=== PATIENT | male | born 1980 | race Caucasian/White ===

== ENCOUNTER 2017-01-28 15:48 | Emergency (ER) | payer BC ==
[~2017-01-28] VITALS: Ht 190.5 cm; Wt 83.9 kg
[2017-01-28 16:03] VITALS: BP 148/89
--- NOTE | 2017-01-28 16:13 | PHYS DOC ---
Past Medical History Past Medical History: No Pertinent History Past Surgical History: Appendectomy, Other Additional Past Surgical Histo: LEFT FEMUR Alcohol Use: Occasionally Drug Use: None Adult General Chief Complaint Chief Complaint: DENTAL PROBLEM HPI HPI Patient is a 36 year old female presents to the emergency department stating that he has having left upper dental pain and discomfort in which she's been having for the last 3 weeks. Patient states that he has been taken his 's Tylenol 3 for pain and discomfort with minimal relief. He denies any fever, chills or any nausea or vomiting. Patient states that he has a lot of dental issues and however his does not have dental insurance at this time. He denies any nausea or vomiting foul taste in the mouth. Review of Systems Review of Systems Constitutional: Denies fever or chills [] Eyes: Denies change in visual acuity, redness, or eye pain [] HENT: Denies nasal congestion or sore throat. Left upper dental pain Respiratory: Denies cough or shortness of breath [] Cardiovascular: No additional information not addressed in HPI [] GI: Denies abdominal pain, nausea, vomiting, bloody stools or diarrhea [] : Denies dysuria or hematuria [] Musculoskeletal: Denies back pain or joint pain [] Integument: Denies rash or skin lesions [] Neurologic: Denies headache, focal weakness or sensory changes [] Endocrine: Denies polyuria or polydipsia [] Allergies Allergies Allergies Coded Allergies Type Severity Reaction Last Updated Verified No Known Drug Allergies 04/05/15 No Physical Exam Physical Exam Constitutional: Well developed, well nourished, no acute distress, non-toxic appearance. [] HENT: Normocephalic, atraumatic, bilateral external ears normal, oropharynx moist, no oral exudates, nose normal. Bilateral tympanic membranes appear to be normal. Throat with no erythematous no redness noted patient appears to have a cracked and decayed teeth throughout the mouth. Eyes: PERRLA, EOMI, conjunctiva normal, no discharge. [] Neck: Normal range of motion, no tenderness, supple, no stridor. [] Cardiovascular:Heart rate regular rhythm, no murmur [] Lungs & Thorax: Bilateral breath sounds clear to auscultation [] Skin: Warm, dry, no erythema, no rash. [] Back: No tenderness, Extremities: No tenderness, no cyanosis, no clubbing, ROM intact, no edema. [] Neurologic: Alert and oriented X 3, normal motor function, normal sensory function, no focal deficits noted. [] Psychologic: Affect normal, judgement normal, mood normal. [] Current Patient Data Vital Signs Vital Signs Date Time Temp Pulse Resp B/P (MAP) Pulse Ox O2 Delivery O2 Flow Rate FiO2 01/28/17 16:03 97.6 71 18 98 Room Air 97.6 EKG EKG [] Radiology/Procedures Radiology/Procedures [] Course & Med Decision Making Course & Med Decision Making Pertinent Labs and Imaging studies reviewed. (See chart for details) Spoke with patient regards to dental care. Patient was also noted through [employer] tracks to see the dentist on 01/01/2017. At that time patient had been provided with Tylenol 3. After talking with the patient regards to seeing the dentist at that time. He states that he would be able to make an appointment with him revealed follow-up. Patient was encouraged to take ibuprofen for pain and discomfort. He was recommended to use warm salt water mouth rinses 4-5 times a day. Recommended continuing to brush and floss twice a day. Patient was provided with signs and symptoms to return back to emergency department. Patient will be discharged home in stable condition. [] Dragon Disclaimer Dragon Disclaimer This electronic medical record was generated, in whole or in part, using a voice recognition dictation system. Departure Departure Impression: Primary Impression: Pain, dental Disposition: HOME, SELF-CARE Condition: STABLE Referrals: NO PCP (PCP) Patient Instructions: Dental Pain, [id number] Additional Instructions: Activity as tolerated. Warm salt water mouth rinses 4-5 times a day. Continue to flossing and brush her teeth twice today. Ibuprofen 800 mg every 8 hours with food stop taking few develop an upset stomach. Follow-up with the dentist in which she will have one already. Return back to emergency prior signs symptoms of become worse. ASHWINI BASILIO [employer] Jan 28, 2017 16:13
== END 2017-01-28 16:20 | disposition home or self-care (01) ==
LOC: ER 15:48
DX: K08.89 Other specified disorders of teeth and supporting structures (principal)
CPT/HCPCS: 99281

== ENCOUNTER 2019-05-16 08:25 | Emergency (ER) | payer BC ==
[~2019-05-16] VITALS: Ht 190.5 cm; Wt 81.6 kg
[2019-05-16] MEDS ORDERED: ASPIRIN CHEWABLE 81 MG TABLET. PO ONE (08:30)
--- NOTE | 2019-05-16 08:39 | PHYS DOC ---
Past Medical History Past Medical History: No Pertinent History Past Surgical History: Appendectomy, Other Additional Past Surgical Histo: LEFT FEMUR Alcohol Use: Occasionally Drug Use: None Adult General Chief Complaint Chief Complaint: CHEST WALL PAIN HPI HPI 38-year-old male presents to the emergency Department complaints of chest pain right-sided. Patient states he woke up at 6 AM with complaints of pain at that time. Denies any nausea, vomiting, shortness breath, radiation of pain. He does smoke pack and half per day. Family history coronary artery disease otherwise no risk factors for the patient. Nothing makes his pain better. He states movements breaths make his pain worse. Review of Systems Review of Systems Constitutional: Denies fever or chills [] Eyes: Denies change in visual acuity, redness, or eye pain [] HENT: Denies nasal congestion or sore throat [] Respiratory: Denies cough or shortness of breath [] Cardiovascular: No additional information not addressed in HPI [] GI: Denies abdominal pain, nausea, vomiting, bloody stools or diarrhea [] Musculoskeletal: chronic back pain[] Neurologic: Denies headache, focal weakness or sensory changes [] All other systems were reviewed and found to be within normal limits, except as documented in this note. Current Medications Current Medications Current Medications Medications (Trade) Dose Ordered Sig/Cas Start Time Stop Time Status Last Admin Dose Admin Aspirin (Children'S Aspirin) 324 mg 1X ONCE 05/16/19 08:30 05/16/19 08:31 DC 05/16/19 08:46 324 MG Ketorolac Tromethamine (Toradol 30mg Vial) 30 mg 1X ONCE 05/16/19 08:45 05/16/19 08:46 DC 05/16/19 08:47 30 MG Allergies Allergies Allergies Coded Allergies Type Severity Reaction Last Updated Verified No Known Drug Allergies 04/05/15 No Physical Exam Physical Exam Constitutional: Well developed, well nourished, no acute distress, non-toxic appearance. [] HENT: Normocephalic, atraumatic, bilateral external ears normal, oropharynx moist, no oral exudates, nose normal. [] Eyes: PERRLA, EOMI, conjunctiva normal, no discharge. [] Neck: Normal range of motion, no tenderness, supple, no stridor. [] Cardiovascular:Heart rate regular rhythm, no murmur [] Lungs & Thorax: Bilateral breath sounds clear to auscultation [] Abdomen: Bowel sounds normal, soft, no tenderness, no masses, no pulsatile masses. [] Skin: Warm, dry, no erythema, no rash. [] Back: No tenderness, no CVA tenderness. [] Extremities: No tenderness, no cyanosis, no clubbing, ROM intact, no edema. [] Neurologic: Alert and oriented X 3, normal motor function, normal sensory function, no focal deficits noted. [] Psychologic: Affect normal, judgement normal, mood normal. [] Current Patient Data Vital Signs Vital Signs Date Time Temp Pulse Resp B/P (MAP) Pulse Ox O2 Delivery O2 Flow Rate FiO2 05/16/19 09:29 78 18 119/79 (92) 98 Room Air 05/16/19 08:28 97.7 97.7 Lab Values Laboratory Tests Test 05/16/19 08:35 White Blood Count 11.5 x10^3/uL (4.0-11.0) H Red Blood Count 5.19 x10^6/uL (4.30-5.70) Hemoglobin 15.5 g/dL (13.0-17.5) Hematocrit 45.6 % (39.0-53.0) Mean Corpuscular Volume 88 fL (79-100) Mean Corpuscular Hemoglobin 30 pg (25-35) Mean Corpuscular Hemoglobin Concent 34 g/dL (31-37) Red Cell Distribution Width 13.4 % (11.5-14.5) Platelet Count 209 x10^3/uL (140-400) Neutrophils (%) (Auto) 67 % (31-73) Lymphocytes (%) (Auto) 22 % (24-48) L Monocytes (%) (Auto) 8 % (0-9) Eosinophils (%) (Auto) 2 % (0-3) Basophils (%) (Auto) 1 % (0-3) Neutrophils # (Auto) 7.8 x10^3/uL (1.8-7.7) H Lymphocytes # (Auto) 2.6 x10^3/uL (1.0-4.8) Monocytes # (Auto) 0.9 x10^3/uL (0.0-1.1) Eosinophils # (Auto) 0.3 x10^3/uL (0.0-0.7) Basophils # (Auto) 0.1 x10^3/uL (0.0-0.2) Sodium Level 140 mmol/L (136-145) Potassium Level 4.3 mmol/L (3.5-5.1) Chloride Level 102 mmol/L (98-107) Carbon Dioxide Level 27 mmol/L (21-32) Anion Gap 11 (6-14) Blood Urea Nitrogen 11 mg/dL (8-26) Creatinine 0.9 mg/dL (0.7-1.3) Estimated GFR (Cockcroft-Gault) 93.9 BUN/Creatinine Ratio 12 (6-20) Glucose Level 74 mg/dL (70-99) Calcium Level 9.2 mg/dL (8.5-10.1) Total Bilirubin 0.3 mg/dL (0.2-1.0) Aspartate Amino Transferase (AST) 15 U/L (15-37) Alanine Aminotransferase (ALT) 14 U/L (16-63) L Alkaline Phosphatase 68 U/L (46-116) Troponin I Quantitative < 0.017 ng/mL (0.000-0.055) Total Protein 7.5 g/dL (6.4-8.2) Albumin 3.7 g/dL (3.4-5.0) Albumin/Globulin Ratio 1.0 (1.0-1.7) Laboratory Tests 05/16/19 08:35 Laboratory Tests 05/16/19 08:35 EKG EKG EKG reviewed, normal sinus rhythm, heart rate 86, no evidence of ST elevation AL, normal axis.[] Interpretation Time: Interpretation time 0 833 Radiology/Procedures Radiology/Procedures [facility] [address] [place] [address] IMAGING REPORT Signed PATIENT: HERIBERTO DAVIES ACCOUNT: [id number] : 1980 LOCATION: ER AGE: 38 SEX: M EXAM STATUS: REG ER ORD. PHYSICIAN: NITA FLORES MD REASON: chest pain PROCEDURE: PORTABLE CHEST 1V EXAM: Chest, single view. HISTORY: Chest pain. COMPARISON: None. FINDINGS: Frontal views of the chest are obtained. There is hyperinflation likely due to inspiratory effort or emphysema. There is slight left greater than right apical pleural-parenchymal scarring. There is no infiltrate, pleural effusion or pneumothorax. The heart is normal in size. There is a chronic appearing lateral left eighth rib fracture. IMPRESSION: Hyperinflation. No acute pulmonary finding. Electronically signed by: Gabby Jasso MD (05/16/2019 8:49 AM) [id number] DICTATED and SIGNED BY: GABBY JASSO MD DATE: 05/16/19 0849 [] Course & Med Decision Making Course & Med Decision Making Pertinent Labs and Imaging studies reviewed. (See chart for details) []38-year-old male presents to the emergency Department complaints of chest pain right-sided. Patient states he woke up at 6 AM with complaints of pain at that time. Denies any nausea, vomiting, shortness breath, radiation of pain. He does smoke pack and half per day. Family history coronary artery disease otherwise no risk factors for the patient. Nothing makes his pain better. He states movements breaths make his pain worse. Labs/Imaging reviewed Toradol 30mg IV x 1 Patient states some improvement with pain, he states he has chronic back pain as well which may be attributing Discussed lab findings and dc plans Dragon Disclaimer Dragon Disclaimer This electronic medical record was generated, in whole or in part, using a voice recognition dictation system. The HEART Score for CP Pts HEART Score for Chest Pain: HEART Score for Chest Pain Response (Comments) Value History Slighlty/Non-Suspicious 0 ECG Normal 0 Age < 45 0 Risk Factors 1 or 2 Risk Factors 1 Troponin < Normal Limit 0 Total 1 Risk Factors: Risk Factors: DM, Current or recent (<one month) smoker, HTN, HLP, family history of CAD, obesity. Risk Scores: Score 0 - 3: 2.5% MACE over next 6 weeks - Discharge Home Score 4 - 6: 20.3% MACE over next 6 weeks - Admit for Clinical Observation Score 7 - 10: 72.7% MACE over next 6 weeks - Early Invasive Strategies Departure Departure Impression: Primary Impression: Chest wall pain Disposition: HOME, SELF-CARE Condition: STABLE Referrals: NO PCP (PCP) Patient Instructions: Chest Wall Pain, [id number] Additional Instructions: Recommend follow up with PCP 3 - 5 days Return to the ER with worsening symptoms, intractable pain, fever, altered mental status Tylenol as needed Rx provided for flexeril and diclofenac Scripts Diclofenac Sodium (DICLOFENAC SODIUM) 50 Mg Tablet.dr 1 TAB PO BID PRN for PAIN for 5 Days, #10 TAB 2 Refills Prov: NITA FLORES MD 05/16/19 Cyclobenzaprine Hcl (CYCLOBENZAPRINE HCL) 10 Mg Tablet 1 TAB PO TID, #21 TAB Prov: NITA FLORES MD 05/16/19 NITA FLORES MD May 16, 2019 08:39
[2019-05-16] MEDS ORDERED: KETOROLAC 30 MG/ML VIAL. IVP ONE (08:45)
[2019-05-16 08:49] LABS: BASO # 0.1 x10^3/uL (0.0-0.2); BASO % 1 % (0-3); EOS # 0.3 x10^3/uL (0.0-0.7); EOS % 2 % (0-3); HEMATOCRIT 45.6 % (39.0-53.0); HEMOGLOBIN 15.5 g/dL (13.0-17.5); LYMPH # 2.6 x10^3/uL (1.0-4.8); LYMPH % 22 % (24-48); MEAN CORPUSCULAR HEMOGLOBIN 30 pg (25-35); MEAN CORPUSCULAR HGB CONC 34 g/dL (31-37); MEAN CORPUSCULAR VOLUME 88 fL (79-100); MONO # 0.9 x10^3/uL (0.0-1.1); MONO % 8 % (0-9); NEUT # 7.8 x10^3/uL (1.8-7.7); NEUT % 67 % (31-73); PLATELET COUNT 209 x10^3/uL (140-400); RED BLOOD COUNT 5.19 x10^6/uL (4.30-5.70); RED CELL DISTRIBUTION WIDTH 13.4 % (11.5-14.5); WHITE BLOOD COUNT 11.5 x10^3/uL (4.0-11.0)
--- NOTE | 2019-05-16 08:52 | RAD ---
EXAM: Chest, single view. HISTORY: Chest pain. COMPARISON: None. FINDINGS: Frontal views of the chest are obtained. There is hyperinflation likely due to inspiratory effort or emphysema. There is slight left greater than right apical pleural-parenchymal scarring. There is no infiltrate, pleural effusion or pneumothorax. The heart is normal in size. There is a chronic appearing lateral left eighth rib fracture. IMPRESSION: Hyperinflation. No acute pulmonary finding. Electronically signed by: Celsa Jasso MD (05/16/2019 8:49 AM) [place] [id number]
[2019-05-16 09:06] LABS: CALCIUM 9.2 mg/dL (8.5-10.1); CREATININE 0.9 mg/dL (0.7-1.3); GFR 93.9; POTASSIUM 4.3 mmol/L (3.5-5.1)
[2019-05-16 09:11] LABS: ALBUMIN 3.7 g/dL (3.4-5.0); TOTAL BILIRUBIN 0.3 mg/dL (0.2-1.0); TOTAL PROTEIN 7.5 g/dL (6.4-8.2)
[2019-05-16 09:29] VITALS: BP 119/79
[2019-05-16] MEDS ORDERED: DICL50TA4 PO (10:11)
[2019-05-16] MEDS ORDERED: CYCL10TA2 PO (10:11)
--- NOTE | 2019-05-16 10:11 | EKG ---
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
== END 2019-05-16 10:27 | disposition home or self-care (01) ==
LOC: ER 08:25
DX: R07.89 Other chest pain (principal); F17.200 Nicotine dependence, unspecified, uncomplicated; Z90.89 Acquired absence of other organs
CPT/HCPCS: 36415; 71045; 80053; 84484; 85025; 93005; 96374; 99285; J1885